=== PATIENT | female | born 1940 | race African-American/Black ===

== ENCOUNTER 2016-07-03 19:53 | Emergency (ER) | payer OTHER ==
[~2016-07-03] VITALS: Ht 162.6 cm; Wt 68.5 kg
[~2016-07-03 19:53] MED LIST: ASPIR 8181 MG; CHLORTHALIDONE25 MG; CLEOCIN HCL300 MG PO; COZAAR 50 MG TA50 M1; GLUCOSAMINE HC500 MG; LIPITOR10 MG; NORCO 5-325 TA1 EACH; SYNTHROID125 MCG; TOPROL XL25 MG; TRAMADOL 50 MG50 MG; TYLENOL W/CODEI1 TA2 PO; VITAMIN D400 UNIT; ZYRTEC10 MG
[2016-07-03 21:27] VITALS: BP 203/85
== END 2016-07-03 21:30 | disposition home or self-care (01) ==
LOC: ER 19:53
DX: S81.011A Laceration without foreign body, right knee, initial encounter (principal); I10 Essential (primary) hypertension; E78.5 Hyperlipidemia, unspecified; M10.9 Gout, unspecified; E89.0 Postprocedural hypothyroidism; Z98.890 Other specified postprocedural states; Z88.6 Allergy status to analgesic agent; Z88.0 Allergy status to penicillin; W01.0XXA Fall on same level from slipping, tripping and stumbling without subsequent striking against object, initial encounter; Y93.01 Activity, walking, marching and hiking; Y92.22 Religious institution as the place of occurrence of the external cause; Y99.8 Other external cause status